=== PATIENT | male | born 1970 | race Caucasian/White ===

== ENCOUNTER 2023-07-24 12:22 | Outpatient (CLI) | payer OTHER, SELFPAY | END 2023-07-24 12:23 | disposition home or self-care (01) | PROVIDERS: Visit Provider Family Medicine | DX: S39.92XA Unspecified injury of lower back, initial encounter (principal); W17.89XA Other fall from one level to another, initial encounter; Y92.9 Unspecified place or not applicable | CPT/HCPCS: A0425; A0427 ==

== ENCOUNTER 2023-07-24 12:46 | Observation (INO) | payer OTHER, SELFPAY ==
[2023-07-24] VITALS (17 sets, daily range): BP systolic 106–130; BP diastolic 58–85; PULSE 69–95; RESP 16–20; TEMP 36.4–36.8; O2SAT 91–97; BMI 26.6; BMI 28.1
--- NOTE | 2023-07-24 12:54 | CT_ITS ---
Patient: REY CORBIN Facility:?[facility] RIS Patient ID:[id number] Site Patient ID:?[id number]. Site :?[id number] Study:?CT-Chest/Abd/Pelvis 85CC ISOVUE 370-07/24/2023 2:06:11 PM Ordering Physician:?DR. PINEDO Final Report: INDICATION: Trauma with left rib, flank and abdomen pain. TECHNIQUE: CT chest, abdomen and pelvis acquired with 85 cc Isovue 370 IV contrast. COMPARISON: None. FINDINGS: CHEST: Cardiovascular structures: Heart size is normal. Thoracic aorta and main pulmonary artery are normal in caliber. Mediastinum and justine: No mass or adenopathy. Lungs and pleura: Lungs and pleural spaces are clear. No suspicious nodules, infiltrates, or effusions. Chest wall and axilla: No mass or adenopathy. Bones: Acute fractures of the lateral left ribs 5-7. The 6th rib fracture is displaced. ABDOMEN AND PELVIS: Liver: Unremarkable. No sign of acute injury. Gallbladder and bile ducts: Unremarkable. Pancreas: Unremarkable. Spleen: Unremarkable. No sign of acute injury. Adrenal glands: Unremarkable. Kidneys: Unremarkable except for a 3 cm exophytic cyst off the left kidney. GI tract: Unremarkable. Vascular structures: Unremarkable. Mesenteric arteries are patent. Lymph nodes: Unremarkable. Miscellaneous: Unremarkable. No free air or significant free fluid. Pelvic Organs: Unremarkable. Bones: No acute fracture or dislocation. IMPRESSION: 1. Acute fractures of the left ribs 5-7. 2. No other sign of acute injury or significant disease in the chest, abdomen or pelvis. Please note that all CT scans at this facility use dose modulation, iterative reconstruction, and/or weight-based dosing when appropriate to reduce radiation dose to as low as reasonably achievable. Dictated by Lex Neal MD @ 07/24/2023 3:57:20 PM Signed by:?Lex Neal MD @07/24/2023 3:57:20 PM (Electronic Signature)
--- NOTE | 2023-07-24 13:00 | ED.GENADULT ---
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 He is a gets a lot of his medical care through the [place]. He does not have any serious long-term medical problems but has been dealing with some injuries and degenerative discs in his lower lumbar [facility] He has been instructed a when he slipped and fell out the back. He landed hard on the left side of his ribcage. He is having a lot of pain he I in the midline of his lower thoracic spine and especially in his left posterior ribs. It hurts to breathe. He feels short of breath but paramedics report that his oxygen was 100% on room air. Blood pressure is slightly elevated. Vitals are otherwise stable. He also has some pain radiating down to his left flank. No anterior abdominal pain. He did not hit his head when he fell. No neck pain. No new numbness or tingling or weakness in his arms or legs. He is not anticoagulated. Related Data Home Medications Medication Instructions Recorded Confirmed No Known Home Medications 07/24/23 07/24/23 Allergies Allergy/AdvReac Type Severity Reaction Status Date / Time No Known Drug Allergies Allergy Verified 07/24/23 13:59 [facility] Social History Smoking Status: Never smoker Do you use any of these nicotine containing products: None Second hand tobacco smoke exposure: No How often do you have a drink containing alcohol: never AUDIT-C Alcohol total score: 0 Non-prescribed substance use: denies use service: Yes Exam Narrative: Exam Narrative: Primary Survey: A- patent. Speaking clearly. Phonation normal. No stridor. B- breathing easily. Lung sounds clear and equal. He is quite tender on the left posterior lower ribs. No definite crepitus. No bruising. He Oxygen saturation normal on room air C- no active bleeding. Blood pressure stable. Symmetric pulses and cap refill in 4 extremities. D- alert and oriented x3. GCS 15. No focal deficits. Constitutional: Appears well-developed and well-nourished. Alert. Conversant. Non toxic. HENT: Head: Atraumatic. The exam head trauma Nose: Nose normal. Mouth/Throat: Oral mucosa is clear and moist. no trismus. Pharynx normal. Tonsils symmetric. No tonsillar enlargement, erythema, or exudate. Eyes: Conjunctivae normal. EOM normal. Pupils equal, round, and reactive to light. No scleral icterus. Neck: Normal range of motion. Neck supple. No tracheal deviation present. Cardiovascular: Normal rate, regular rhythm. No gallop. No friction rub. No murmur heard. Symmetric radial artery pulses Pulmonary/Chest: Effort normal. No stridor. No respiratory distress. No wheezes. No rales. No rhonchi . The a marked left posterior and inferior rib cage tenderness with some left lateral rib tenderness. He has trouble taking a deep breath due to pain. Fortunately oxygen saturations are normal Abdominal: Soft.. No distension. No mass. No tenderness. No rebound. No guarding. Musculoskeletal: No midline step-off of the T or L-spine but he is tender on the lower 1/3 of his thoracic spine and lower rib cage. Pelvis is stable. C-spine and L-spine nontender. RUE: Normal range of motion. No tenderness. No deformity LUE: Normal range of motion. No tenderness. No deformity RLE: Normal range of motion. No edema. No tenderness. No deformity LLE: Normal range of motion. No edema. No tenderness. No deformity Neurological: Alert and oriented to person, place, and time. Normal strength. CN II-VII intact. No sensory deficit. GCS eye subscore is 4. GCS verbal subscore is 5. GCS motor subscore is 6. Normal coordination Sensory: Normal light touch sensation bilaterally on the anteromedial thigh (L3), medial malleolus (L4), dorsal first web space (L5), lateral malleolus (S1). 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 No focal deficit affecting the upper extremities. 5/5 strength hip flexors (L3) on the right and left 5/5 strength in the quadriceps (L4) on the right and left 5/5 strength in the tibialis anterior 5/5 strength in the EHL (L5) on the right and left 5/5 strength in the gastrocnemius (S1) on the right and left 5/5 strength in the hamstring on the right and left Negative straight leg raise bilaterally. Skin: Skin is warm and dry. No rash noted. No pallor. Normal capillary refill. Psychiatric: Normal mood. Normal affect. Const: Vital Signs, click to edit/add: Vital Signs - 24 hr 07/24/23 12:59 07/24/23 13:44 07/24/23 14:00 Temperature 98.1 F Pulse Rate 81 89 Pulse Rate [Pulse Oximeter] 69 Respiratory Rate 20 Blood Pressure Blood Pressure [Ri ght Upper Arm] 123/84 Pulse Oximetry 95 92 91 Oxygen Delivery Me thod Room Air Oxygen Flow Rate 07/24/23 14:30 07/24/23 15:00 07/24/23 15:05 Temperature Pulse Rate 87 95 89 Pulse Rate [Pulse Oximeter] Respiratory Rate Blood Pressure 129/85 Blood Pressure [Ri ght Upper Arm] Pulse Oximetry 91 97 97 Oxygen Delivery Me thod Oxygen Flow Rate 07/24/23 15:06 07/24/23 15:12 07/24/23 15:12 Temperature Pulse Rate 85 Pulse Rate [Pulse Oximeter] Respiratory Rate Blood Pressure Blood Pressure [Ri ght Upper Arm] Pulse Oximetry 96 94 94 Oxygen Delivery Me thod Nasal Cannula Oxygen Flow Rate 1 07/24/23 15:30 07/24/23 15:32 07/24/23 16:00 Temperature Pulse Rate 79 82 79 Pulse Rate [Pulse Oximeter] Respiratory Rate Blood Pressure 111/74 Blood Pressure [Ri ght Upper Arm] Pulse Oximetry 95 96 96 Oxygen Delivery Me thod Oxygen Flow Rate 07/24/23 16:02 Temperature Pulse Rate 77 Pulse Rate [Pulse Oximeter] Respiratory Rate Blood Pressure 111/70 Blood Pressure [Ri ght Upper Arm] Pulse Oximetry 95 Oxygen Delivery Me thod Oxygen Flow Rate Course Vital Signs Vital signs: Initial Vital Signs Temperature 98.1 F 07/24/23 12:59 Temperature Source Temporal Artery Scan 07/24/23 12:59 Pulse Rate 69 07/24/23 12:59 Respiratory Rate 20 07/24/23 12:59 Blood Pressure 123/84 07/24/23 12:59 Blood Pressure Mean 97 07/24/23 12:59 Pulse Oximetry 95 07/24/23 12:59 Oxygen Delivery Method Room Air 07/24/23 12:59 Vital Signs Temperature 98.1 F 07/24/23 12:59 Pulse Rate 69 07/24/23 12:59 Respiratory Rate 20 07/24/23 12:59 Blood Pressure 123/84 07/24/23 12:59 Pulse Oximetry 95 07/24/23 12:59 Oxygen Delivery Method Room Air 07/24/23 12:59 Temperature 98.1 F 07/24/23 12:59 Pulse Rate 77 07/24/23 16:02 Respiratory Rate 20 07/24/23 12:59 Blood Pressure 111/70 07/24/23 16:02 Pulse Oximetry 95 07/24/23 16:02 Oxygen Delivery Method Nasal Cannula 07/24/23 15:12 Oxygen Flow Rate 1 07/24/23 15:12 Medications Administered Medications: Generic Name Dose Route Start Last Admin Trade Name Freq PRN Reason Stop Dose Admin Hydromorphone HCl 0.5 mg 07/24/23 12:55 07/24/23 14:48 Hydromorphone 0.5 Mg/0.5 Ml Inj IVP 0.5 mg Q1H PRN Administration Pain Discontinued Medications Generic Name Dose Route Start Last Admin Trade Name Freq PRN Reason Stop Dose Admin Sodium Chloride 1,000 mls @ 1,000 mls/hr 07/24/23 13:00 07/24/23 14:43 0.9 % Sodium Chloride 1000 Ml IV 07/24/23 13:59 Infused .Q1H MARIA LUISA Infusion Ondansetron HCl 4 mg 07/24/23 12:55 07/24/23 13:12 Ondansetron 2 Mg/Ml Inj IVP 07/24/23 12:56 4 mg ONCE ONE Administration Medical Decision Making [facility] Narrative Medical decision making narrative: Very pleasant 52-year-old presents to the ER today for a work related injury. 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 He was brought to the ER today by EMS for evaluation of his injuries. He was hemodynamically stable and breathing normally on room air when he arrived. He did not hit his head when he fell. He is not anticoagulated. He has normal mental status and no focal neurologic deficits. At this point he does not need a head CT. He does have significant left posterior thorax pain and some pain on his left CVA. Concern here is for possible rib fractures, hemothorax, pneumothorax, T-spine injury, upper L-spine injury, renal or splenic injury, versus other internal injury. Laboratory workup is reassuring. He is not anticoagulated. INR is normal. Hemoglobin is normal. CT scan chest/abdomen/pelvis does show 3 rib fractures on the left side-ribs 5, 6, 7. These appear to be nondisplaced. There is no associated hemo or pneumothorax. No other sign of internal bleeding. No evidence for any vertebral fractures. No exam findings to suggest spinal cord injury. No associated pelvic fracture. He was having significant pain in his received serial doses of IV Dilaudid. With that he did become hypoxic requiring nasal cannula. However repeat lung sounds remain clear and equal. No signs any evolving hemothorax or pneumothorax. He will require hospitalization for pain control and pulmonary monitoring. Discussed with surgeon, Dr. Mckeon and hospitalist, Stella, both will accept the patient here to [place] for management. Although he has 3 rib fractures he is otherwise physically robust and medically stable. At this point I do not think he would benefit from transfer to a level 1 trauma center. Incidentally has a 3 mm left renal cyst. Discussed with the patient. Appears to be benign based on CT imaging. Lab Data Labs: Lab Results 07/24/23 Range/Units 13:11 WBC 5.91 (4.50-11.00) K/uL RBC 5.01 (4.30-5.90) m/uL Hgb 15.2 (13.5-17.5) gm/dL Hct 45.6 (37.0-53.0) % MCV 91 (80-100) fL MCH 30 (26-34) pg MCHC 33 (32-36) gm/dL RDW Coeff of James 12.6 (11.5-15.5) % Plt Count 286 (140-440) K/uL Neut % (Auto) 59.1 (42.0-72.0) % Lymph % (Auto) 28.6 (20-44) % [place] % (Auto) 9.3 (0.0-11.0) % Eos % (Auto) 1.9 (0.0-7.0) % Baso % (Auto) 0.3 (0.0-3.0) % Neut # (Auto) 3.49 (1.7-7.0) K/uL Lymph # (Auto) 1.69 (0.90-2.90) K/uL [place] # (Auto) 0.50 (0.00-0.90) K/UL Eos # (Auto) 0.11 (0.00-0.50) K/uL Baso # (Auto) 0.02 (0.00-0.30) K/uL Abs Immat Gran (auto) 0.05 (0.00-0.30) K/uL Imm/Tot Granulo (auto) 0.8 % INR 0.92 (0.91-1.10) Sodium 141 (135-149) mmol/L Potassium 3.8 (3.6-5.1) mmol/L Chloride 107 (96-114) mmol/L Carbon Dioxide 26 (20-32) mmol/L Anion Gap 8 (7-15) mEq/L BUN 19 (7-30) mg/dL Creatinine 0.9 (0.5-1.5) mg/dL Estimated Creat Clear 93.94 Estimated GFR 103 ml/min Glucose 106 (60-115) mg/dL Calcium 9.4 (8.4-10.6) mg/dL Imaging Data CT Chest/Ab/Pelvis: Attestation: I have reviewed the pertinent imaging results. Radiologist's impression: IMPRESSION: 1. Acute fractures of the left ribs 5-7. 2. No other sign of acute injury or significant disease in the chest, abdomen or pelvis. ECG Data Attestation: I personally reviewed and interpreted this ECG as follows: Interpretation: Normal sinus rhythm rate 75 IN 156 QRS axis normal axis. Right bundle branch block ST segment/T wave: No ST segment elevation or depression. QTc: 433 Discharge Plan Discharge Clinical Impression: Multiple rib fractures Patient Disposition: Admitted As Observation Procedures FAST Exam FAST Exam 1: US method: abdominal Was an Echo performed?: No Fluid in Morison's pouch: No Fluid in Splenorenal Junction: No Fluid around bladder, Transverse view: No Fluid around bladder, Sagittal view: No Study normal for this patient: Yes Additional Comments: Positive lung sliding bilaterally. No evidence for pneumothorax. Images saved to the ED [facility] ultrasound hard drive.
[2023-07-24] MEDS: 0.9 % SODIUM CHLORIDE 1000 ml 1,000 ML IV (13:12)
[2023-07-24] MEDS: HYDROmorphone 0.5 mg/0.5 ml inj IVP ×2 (13:12→14:48)
[2023-07-24] MEDS: ONDANSETRON 2 MG/ML inj 4 MG IVP (13:12)
[2023-07-24 13:28] LABS: Basophils Absolute Auto 0.02 K/uL (0.00-0.30); Basophils Percent Auto 0.3 % (0.0-3.0); Eosinophils Absolute Auto 0.11 K/uL (0.00-0.50); Eosinophils Percent Auto 1.9 % (0.0-7.0); Hematocrit 45.6 % (37.0-53.0); Hemoglobin* 15.2 gm/dL (13.5-17.5); Immature Granulocytes Abs Auto 0.05 K/uL (0.00-0.30); Immature Granulocytes Pct Auto 0.8 %; Lymphocytes Absolute Auto 1.69 K/uL (0.90-2.90); Lymphocytes Percent Auto 28.6 % (20-44); Mean Corpuscular HGB Conc 33 gm/dL (32-36); Mean Corpuscular Hemoglobin 30 pg (26-34); Mean Corpuscular Volume 91 fL (80-100); Monocytes Percent Auto 9.3 % (0.0-11.0); Neutrophils Absolute Auto 3.49 K/uL (1.7-7.0); Neutrophils Percent Auto 59.1 % (42.0-72.0); Platelet Count* 286 K/uL (140-440); RDW Coefficient of Variation % 12.6 % (11.5-15.5); Red Blood Count 5.01 m/uL (4.30-5.90); White Blood Count* 5.91 K/uL (4.50-11.00)
[2023-07-24 13:33] LABS: Slide Review Reflex No
[2023-07-24 13:40] LABS: Chloride* 107 mmol/L (96-114); Potassium* 3.8 mmol/L (3.6-5.1); Sodium* 141 mmol/L (135-149)
[2023-07-24 13:42] LABS: INR 0.92 (0.91-1.10); Prothrombin Time 12.9 Seconds
[2023-07-24 13:43] LABS: Anion Gap 8 mEq/L (7-15); Blood Urea Nitrogen* 19 mg/dL (7-30); Carbon Dioxide* 26 mmol/L (20-32); Creatinine* 0.9 mg/dL (0.5-1.5); Est. Creatinine Clearance* 93.94; Estimated Glomerular Filt Rate 103 ml/min
[2023-07-24 13:44] LABS: Calcium* 9.4 mg/dL (8.4-10.6); Glucose* 106 mg/dL (60-115)
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
[2023-07-24] MEDS: ACETAMINOPHEN 325 MG TABLET 1000 MG PO ×2 (17:35→23:22)
[2023-07-24] MEDS: LIDOCAINE 5% PATCH 1 PATCH TRANSDERMA (17:36)
[2023-07-24] MEDS: ENOXAPARIN 30 MG/0.3ML INJ SUBCUT (17:36)
[2023-07-24] MEDS: KETOROLAC 30 MG/ML inj IVP (17:39)
--- NOTE | 2023-07-24 19:25 | PC.NURSE ---
End of shift [id number] - Pt arrived from ED at approximately 1450. Alert, oriented, pleasant and cooperative. Pt tolerating RA, regular diet, fluids. Pt reports pain in ribs/back increases with movement, but is tolerable when not moving. Pt appears to be resting comfortably in chair at end of shift.
[2023-07-24] MEDS: OXYCODONE 5 MG TABLET PO (20:44)
[2023-07-24] MEDS: SODIUM CHLORIDE 0.9 % (FLUSH) 10 ML SYRINGE 5 ML IVF (20:44)
[2023-07-25] MEDS: OXYCODONE 5 MG TABLET PO (02:44)
[2023-07-25 02:48] VITALS: BP 105/69; PULSE 70; RESP 16; TEMP 36.6; O2SAT 95
--- NOTE | 2023-07-25 03:46 | PC.NURSE ---
Pt rested well this night. Pain controlled. Up IND in room. Pleasant and cooperative. VS unremarkable. Maxing out IS.
[2023-07-25 05:11] VITALS: TEMP 36.6
[2023-07-25] MEDS: ACETAMINOPHEN 325 MG TABLET 1000 MG PO ×2 (05:11→12:25)
[2023-07-25 07:00] VITALS: BP 113/78; PULSE 70; RESP 16; O2SAT 96
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
[2023-07-25] MEDS: ONDANSETRON 2 MG/ML inj 4 MG IVP (07:59)
[2023-07-25] MEDS: SODIUM CHLORIDE 0.9 % (FLUSH) 10 ML SYRINGE 5 ML IVF (08:00)
--- NOTE | 2023-07-25 08:07 | XR_ITS ---
Patient: REY CORBIN Facility:?[facility] Patient ID:?[id number] Site Patient ID:?[id number]. Site :?1970 Study:?XRay-Chest 1V-07/25/2023 8:59:08 AM Ordering Physician:?DR. MCLEOD Final Report: INDICATION: Follow-up rib fractures TECHNIQUE: 1 view chest radiograph COMPARISON: CT 07/24/2023 FINDINGS: Devices: None. Lung volumes are low. Ccaj-biutjff-rhle-right basilar opacities may be atelectasis. No pleural effusion. No pneumothorax. Heart size is normal for volumes and technique. 5th 6th and 7th rib left fractures are not ideally evaluated on this radiograph. Only the 6th rib fracture is definitely seen. IMPRESSION: Left rib fractures better seen on cross-sectional imaging. Low lung volumes may be atelectasis. No effusion or pneumothorax. Dictated by Bhavna Pinon MD @ 07/25/2023 9:05:41 AM Signed by:?Bhavna Pinon MD @07/25/2023 9:05:41 AM (Electronic Signature)
[2023-07-25] MEDS: SENNOSIDES/DOCUSATE TABLET 1 TAB PO (09:54)
--- NOTE | 2023-07-25 13:28 | PC.NURSE ---
Discharge - Pt alert, oriented, cooperative, and pleasant. Up independently in room, continent of bowel and bladder. Pt tolerating RA, regular diet, fluids. Pt reported pain with ambulation and movement in back and L ribs, pain decreased with rest. Pt declined narcotic pain medications offered per MAR, other interventions in MAR used for pt comfort. Pt reported pain as 4/10 which was verbalized as being tolerable. IV removed with catheter intact, discharge education given with verbalized understanding. Pt discharged to home via wheelchair with boss at approximately 1320.
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
== END 2023-07-25 13:20 | disposition home or self-care (01) ==
LOC: ED 16:25 → MEDSURG 16:41
PROVIDERS: Admitting Provider Family Medicine; Emergency Provider Emergency Medicine; Visit Provider Family Medicine
DX: S22.42XA Multiple fractures of ribs, left side, initial encounter for closed fracture (principal); M51.36 Other intervertebral disc degeneration, lumbar region; N28.1 Cyst of kidney, acquired; R07.81 Pleurodynia; R07.1 Chest pain on breathing; M19.90 Unspecified osteoarthritis, unspecified site; V83.5XXA Driver of special industrial vehicle injured in nontraffic accident, initial encounter; V48.4XXA Person boarding or alighting a car injured in noncollision transport accident, initial encounter; Y92.9 Unspecified place or not applicable; Z87.828 Personal history of other (healed) physical injury and trauma; Z87.820 Personal history of traumatic brain injury
CPT/HCPCS: 36415; 71045; 71260; 74177; 76705; 80048; 85025; 85610; 93005; 94761; 96361; 96372; 96374; 96375; 99283; 99285; A9270; G0378; J1170; J1650; J1885; J2405; J7030; Q9967

== ENCOUNTER 2025-03-03 11:47 | Outpatient (CLI) | payer OTHER, SELFPAY | END 2025-03-03 11:48 | disposition home or self-care (01) | LOC: AMB 03-06 01:57 | PROVIDERS: Visit Provider Family Medicine | DX: R53.1 Weakness (principal); R20.0 Anesthesia of skin; R42 Dizziness and giddiness | CPT/HCPCS: A0425; A0427 ==

== ENCOUNTER 2025-03-03 12:07 | Emergency (ER) | payer OTHER, SELFPAY ==
--- OUTSIDE RECORDS SUMMARY | 2025-03-03 12:10 | XMS_ITS | Clinical Summary ---
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 0 8 Active lidocaine 5 % topical patch APPLY 1 PATCH TOPICALLY TO THE SKIN EVERY 24 HOURS 4 Active Social History Tobacco Use Types Packs/Day Years Used Date Smoking Tobacco: Never Smokeless Tobacco: Never Social Connections Answer Date Recorded Do you often feel lonely or isolated from those around you? 0 06/03/2024 Financial Resource Strain Answer Date R ecorded Difficulty of Paying Living Expenses 3 06/03/2024 Difficulty of Paying Living Expenses Not on file 06/03/2024 Food Insecurity Answer Date Recorded Do you worry your food will run out before you are able to buy more? 1 06/03/2024 Transportation Needs Answer Date Record ed Does lack of transportation keep you from medica l appointments? 1 06/03/2024 Does lack of transportation keep you from work, meetings or getting things that you need? 1 06/03/2024 Housing Stability Answer Date Recorded What is your housing situation today? 1 06/03/2024 Utilities Answer Date Recorded Do you have trouble paying f or utilities (for example, heat, electricity, water, phone)? 1 06/03/2024 Sex and Gender Information Value Date Recorded Sex Assigned at Not on file Legal Sex Male 8:49 AM CDT Gender Identity Not on file Sexual Orientation Not on file Obstetrics History Last Filed Vital Signs Vital Sign Reading Time Taken Comments Blood Pressure 114/76 06/03/2024 12:24 PM [employer] Pulse 85 06/03/2024 12:24 PM [employer] Temperature 37.5 C (99.5 F) 06/03/2024 12:24 PM [employer] Respiratory Rate 16 06/03/2024 12:24 PM [employer] Oxygen Saturation 96% 06/03/2024 12:24 PM [employer] Inhaled Oxygen Concentration - - Weight 77.1 kg (170 lb) 10/24/2017 8:58 AM CDT Height 172.7 cm (5' 8) 10/24/2017 8:58 AM CDT Body Mass Index 25.85 10/24/2017 8:58 AM CDT Plan of Treatment Health Maintenance Due Date Last Done Comments Tetanus booster 08/05/1982 Depression screening for age 12+ 1983 HIV for age 15-65 08/05/1986 Hepatitis C screening for age 18-79 08/05/1989 Hepatitis B series for 19+ ( 1 of 3 - 19+ 3-dose series) 08/05/1990 Colonoscopy through age 75 08/05/2016 Lipids for age 45-75 08/05/2016 BMI (ht and wt on same day) for age 18+ 10/24/2018 0 10/24/2017 Pneumococcal series for age 50+ (1 of 1 - PCV) 022 Zoster (shingles) series for age 50+ (1 of 2) 08/06/19 22 Influenza Vaccine (#1) 2024 RSV vaccine for adults or pr egnancy (1 - 1-dose 75+ series) 08/05/2046 Insurance [facility] Care Teams Lockstitch Lining Setter Relationship Specialty Start Date End Date Nonstaff, Doctor NON STAFF DOCTOR PCP - General 10/24/17
--- OUTSIDE RECORDS SUMMARY | 2025-03-03 12:10 | XMS_ITS | Clinical Summary ---
Author Organization 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 Name Role Phone Elsewhere, Pcp Primary Care Provider Unavailabl e Allergies No known active allergies Medications oxyCODONE (ROXICODONE) 5 MG immediate release tablet Take 1 to 2 tablets every 3 hours as needed for pain 60 Tab 0 09/26/2011 Active Social History Tobacco Use Types Packs/Day Years Used Date Smoking Tobacco: Never Alcohol Use Standard Drinks/Week Comments Yes 1.7 (1 standard drink = 0.6 oz p ure alcohol) 1 or less Sex and Gender Information Value Date Recorded Sex Assigned at Not on file Legal Sex Male 10:44 PM [employer]IE[employer]EL[employer] Gender Identity Not on file Sexual Orientation Not on file Last Filed Vital Signs Vital Sign Reading Time Taken Comments Blood Pressure 95/53 09/27/2011 6:03 AM CDT Pulse 93 09/27/2011 6:03 AM CDT Temperature 36.8 C (98.2 F) 09/27/2011 6:03 AM CDT Respiratory Rate 16 09/27/2011 9:38 AM CDT Oxygen Saturation 95% 09/27/2011 6:03 AM CDT Inhaled Oxygen Concentration - - Weight 71.7 kg (158 lb) 09/26/2011 4:51 AM CDT Height 172.7 cm (5' 8) 09/26/2011 4:51 AM CDT Body Mass Index 24.02 09/26/2011 4:51 AM CDT Plan of Treatment Health Maintenance Due Date Last Done Comments CT Colonography 1971 Cologuard 1970 Colonoscopy 1971 Colorectal Cancer Screening 1971 FIT/FOBT 1971 Sigmoidoscopy 1971 Hepatitis B Vaccine (Standin g Order) (1 of 3 - 19+ 3-dose series) 08/05/1990 PERTUSSIS (Standing Order) 08/05/1990 TETANUS (Standing Order) 08/05/1990 Pneumococcal Vaccine: 50+ yr s (Standing Order) (1 of 1 - PCV) 08/05/2021 Shingrix (Zoster recombinant ) vaccine (Standing Order) (1 of 2) 08/05/2021 COVID-19 Single Dose 12/30/2024 Influenza Vaccine Seasonal (Standing Order) (#1) 2024 HPV Vaccine (Standing Order) Aged Out No longer eligible based on patient's age to complete this topic Medical Devices Implanted Type Area Cutter Operator Helper Device Identifier Shelf Expiration Date Model / Serial / Lot 3.5mm Locking Screw Slf-Tpng W/Stardrive Recess 48mm 212.120 - [id number] Implanted:Qty: 1 on 09/27/2011 by Brant Morales DO at [facility] [employer] 212.120 / NO / Screw Locking 3.5 X 50 212.121 - [id number] Implanted:Qty: 2 on 09/27/2011 by Brant Morales DO at [facility] [employer] 212.121 / NO / Screw Syn Cortical Self-Tapping Stainless-Steel 3.5x30mm 204.830 - [id number] Implanted:Qty: 1 on 09/27/2011 by Brant Morales DO at [facility] [employer] 204.830 / NO / Screw Cortex 3.5mm X 45mm Ft Self Tap 204.845 - [id number] Implanted:Qty: 1 on 09/27/2011 by Brant Morales DO at [facility] [employer] 204.845 / NO / Plate T Synthes 3.5mm Lcp 50mmright Angle 241.131 - [id number] Implanted:Qty: 1 on 09/27/2011 by Brant Morales DO at [facility] [employer] 241.131 / NO / Wire Luz Trocar-Point Stainless-Steel 2.62l324pf 292.20 - [id number] Implanted:Qty: 1 on 09/27/2011 by Brant Morales DO at [facility] [employer] 292.20 / NO / Insurance [employer] [place] [address] [facility] Care Teams Garden Tractor Mechanic Relationship Specialty Start Date End Date Elsewhere, Pcp PCP - General 09/26/11
[2025-03-03 12:15] VITALS: BP 136/92; PULSE 72; RESP 16; TEMP 37; O2SAT 98; BMI 25.5
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
--- NOTE | 2025-03-03 12:39 | CRLHL7_ITS ---
For Patients: As a result of the Century Cures Act, medical imaging exams and procedure reports are released immediately into your electronic medical record. You may view this report before your referring provider. If you have questions, please contact your health care provider. Indication: Low back pain. Technique: Multiplanar multisequence noncontrast MR images of the lumbar spine. Comparison: None. Findings: The lumbar lordosis preserved. Vertebral heights maintained. No acute fracture. No T1 hypointense lesions. Normal conus terminates at L1-2. T12-L1 and L1-2: No spinal canal or neural foraminal narrowing. L2-3: Minimal disc degeneration. Minimal facet arthropathy. No spinal canal or neural foraminal narrowing. L3-4: Mild disc degeneration. Shallow disc bulge. Minimal facet arthropathy. Minimal spinal canal narrowing. No neural foraminal narrowing. L4-5: Trace retrolisthesis. Phun-[id number]-vrcogydg disc degeneration. Minimal discogenic endplate edema. Shallow posterior disc bulge. Punctate dorsal annular fissure. Endplate spondylitic ridging. Mild facet arthropathy. Minimal spinal canal narrowing. No neural foraminal narrowing. L5-S1: Mild retrolisthesis. Moderate disc degeneration. Disc height loss. Posterior disc bulging and endplate spondylitic ridging. Small dorsal annular fissure. Mild facet arthropathy. No spinal canal narrowing. Minimal left without right neural foraminal narrowing. Right parapelvic renal cysts. Mixed signal intensity lesion arising from the left kidney superior pole measures 2.3 cm and demonstrates an internal fluid level. Impression: 1. Multilevel lumbar spondylosis without spinal canal or neural foraminal stenosis. 2. Mixed signal intensity lesion arising from the left kidney superior pole measures 2.3 cm and demonstrates an internal fluid level. This finding may represent a hemorrhagic or proteinaceous cyst, though is incompletely characterized. Follow-up renal ultrasound is recommended for further evaluation on a nonemergent basis. Dictated by Dejan Cheney MD @ 03/03/2025 2:27:34 PM (Electronically Signed)
== END 2025-03-03 15:58 | disposition home or self-care (01) ==
PROVIDERS: Emergency Provider Family Medicine
DX: M47.816 Spondylosis without myelopathy or radiculopathy, lumbar region (principal); N28.1 Cyst of kidney, acquired
CPT/HCPCS: 72148; 99284